=== PATIENT | male | born 1990 | race Two or more races ===

== ENCOUNTER 2022-10-21 22:59 | Emergency (ER) | payer OTHER ==
[~2022-10-21] VITALS: Ht 170.2 cm; Wt 97.5 kg
[2022-10-21 23:11] VITALS: BP 119/91
--- NOTE | 2022-10-21 23:15 | NUR ---
COVID ANTIGEN SWAB COLLECTED AND SENT TO LAB
[2022-10-21] MEDS ORDERED: ACETAMINOPHEN ES 500 MG TABLET ONE (23:19)
[2022-10-21] MEDS: ACETAMINOPHEN 325 MG TABLET PO ONE (23:22)
[2022-10-22] MEDS ORDERED: TYL2T PO (00:20)
== END 2022-10-22 00:27 ==
LOC: ER 23:02
DX: J06.9 Acute upper respiratory infection, unspecified (principal); B97.89 Other viral agents as the cause of diseases classified elsewhere; Z20.822 Contact with and (suspected) exposure to COVID-19; Z28.310 Unvaccinated for COVID-19; Z28.20 Immunization not carried out because of patient decision for unspecified reason
CPT/HCPCS: 99283; 87426; C9803